=== PATIENT | male | born 1970 | race Caucasian/White ===

== ENCOUNTER 2018-08-25 14:53 | Emergency (ER) | payer OTHER ==
[~2018-08-25] VITALS: Ht 177.8 cm; Wt 74.8 kg
[2018-08-25 15:11] LABS: ABSOLUTE EOSINOPHILS 0.1 thou/uL (0.0-0.7); ABSOLUTE LYMPHOCYTES 1.4 thou/uL (0.8-5.3); ABSOLUTE MONOCYTES 0.3 thou/uL (0.0-1.2); ABSOLUTE NEUTROPHILS 2.8 thou/uL (1.6-8.1); BASOPHILS 0.8 %; EOSINOPHILS 1.6 %; HEMATOCRIT 46.1 % (42.0-52.0); HEMOGLOBIN 15.4 gm/dL (14.0-18.0); LYMPHOCYTES 30.3 %; MCH 31.4 pg (26.0-34.0); MCHC 33.4 g/dL (28.0-37.0); MCV 94.1 fL (80.0-100.0); MONOCYTES 6.8 %; MPV 7.7 fl. (7.2-11.1); NUCLEATED RBCS 0 /100WBC; PLATELET COUNT* 265 thou/uL (150-400); POLYS 60.5 %; RDW-CV 13.5 % (10.5-14.5); WBC 4.6 thou/uL (4.0-11.0)
[2018-08-25 15:25] LABS: ANION GAP 13 mmol/L (7-16); BUN 8 mg/dL (7-18); CALCIUM 8.6 mg/dL (8.5-10.1); CHLORIDE 101 mmol/L (98-107); CO2 24 mmol/L (21-32); CREATININE 0.9 mg/dL (0.6-1.3); GLUCOSE 95 mg/dL (70-99); POTASSIUM 3.8 mmol/L (3.5-5.1); SODIUM 138 mmol/L (136-145)
[2018-08-25 15:26] LABS: APTT 25.7 Seconds (25.0-31.3); PROTIME 10.4 Seconds (9.20-11.50)
[2018-08-25 15:44] LABS: ALBUMIN 4.1 g/dL (3.4-5.0); ALKALINE PHOSPHATASE 73 U/L (46-116); CK-MB MASS 3.4 ng/mL (<0.5-3.6); LIPASE 93 U/L (73-393); MAGNESIUM 1.9 mg/dL (1.8-2.4); NT-PRO BRAIN NAT PEPTIDE 35 pg/mL (<300); SGOT 22 U/L (15-37); SGPT 23 U/L (30-65); TOTAL BILIRUBIN 0.6 mg/dL (<0.1-1.0); TOTAL PROTEIN 7.5 g/dL (6.4-8.2); TROPONIN-I LEVEL <0.06 ng/mL (<0.06)
[2018-08-25 15:54] VITALS: BP 160/90
--- NOTE | 2018-08-26 14:29 | EKG ---
[place] [address] ELECTROCARDIOGRAM REPORT Name: CAPRI GARCIA Room: 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
== END 2018-08-25 15:55 | disposition home or self-care (01) ==
LOC: M.ERS 14:53
PROVIDERS: Family Medicine
DX: R00.2 Palpitations (principal); R42 Dizziness and giddiness

== ENCOUNTER 2021-05-28 12:20 | Emergency (ER) | payer OTHER ==
[~2021-05-28] VITALS: Ht 177.8 cm; Wt 79.4 kg
[2021-05-28 13:49] VITALS: BP 128/81
== END 2021-05-28 13:50 | disposition home or self-care (01) ==
LOC: M.ERS 12:20
DX: M25.571 Pain in right ankle and joints of right foot (principal)

== ENCOUNTER 2021-06-07 12:01 | Emergency (ER) | payer OTHER ==
[~2021-06-07] VITALS: Ht 177.8 cm; Wt 79.4 kg
[2021-06-07 14:04] VITALS: BP 131/93
== END 2021-06-07 14:06 | disposition home or self-care (01) ==
LOC: M.ERS 12:01
DX: S93.401A Sprain of unspecified ligament of right ankle, initial encounter (principal); X50.1XXA Overexertion from prolonged static or awkward postures, initial encounter; Y93.89 Activity, other specified; Y92.89 Other specified places as the place of occurrence of the external cause; Y99.8 Other external cause status